=== PATIENT | male | born 1960 | race Caucasian/White ===

== ENCOUNTER 2019-06-15 03:23 | Emergency (ER) | payer OTHER ==
[2019-06-15 04:04] LABS: ABSOLUTE BASOPHILS # (AUTO) 0.1 10^3/uL (0.0-0.2); ABSOLUTE EOSINOPHILS # (AUTO) 0.3 10^3/uL (0.0-0.6); ABSOLUTE LYMPHOCYTES (AUTO) 3.4 10^3/uL (0.5-4.7); ABSOLUTE MONOCYTES (AUTO) 0.8 10^3/uL (0.1-1.4); ABSOLUTE NEUT (AUTO) 5.4 10^3/uL (1.7-8.2); BASOPHILS % (AUTO) 0.8 % (0-2); EOSINOPHILS % (AUTO) 3.2 % (0-6); HEMATOCRIT 46.1 % (37.9-51.0); HEMOGLOBIN 16.1 g/dL (13.5-17.0); LYMPHOCYTES % (AUTO) 33.8 % (13-45); MEAN CORPUSCULAR HEMOGLOBIN 29.9 pg (27.0-33.4); MEAN CORPUSCULAR HGB CONC 34.9 g/dL (32.0-36.0); MEAN CORPUSCULAR VOLUME 86 fl (80-97); MONOCYTES % (AUTO) 7.9 % (3-13); PLATELET COUNT 167 10^3/uL (150-450); RED BLOOD COUNT 5.39 10^6/uL (4.35-5.55); RED CELL DISTRIBUTION WIDTH 13.2 % (11.5-14.0); SEGMENTED NEUTROPHILS % (AUTO) 54.3 % (42-78); TOTAL CELLS COUNTED % (AUTO) 100 %
[2019-06-15 04:06] VITALS: BP 133/88
[2019-06-15 04:31] LABS: ALBUMIN 4.2 g/dL (3.5-5.0); ALKALINE PHOSPHATASE 69 U/L (38-126); ANION GAP 9 (5-19); ASPARTATE AMINO TRANSFERASE 45 U/L (17-59); BILIRUBIN,TOTAL 0.9 mg/dL (0.2-1.3); BLOOD UREA NITROGEN 27 mg/dL (7-20); CALCIUM 8.9 mg/dL (8.4-10.2); CARBON DIOXIDE 28 mmol/L (22-30); CHLORIDE 102 mmol/L (98-107); GLUCOSE 154 mg/dL (75-110); POTASSIUM 3.9 mmol/L (3.6-5.0); TOTAL PROTEIN 7.1 g/dL (6.3-8.2)
--- NOTE | 2019-06-15 05:20 | RADIOLOGY REPORT (SQ) ---
CLINICAL HISTORY: chest pain COMPARISON: None. TECHNIQUE: XR CHEST 1 VIEW 06/15/2019 3:57 AM [facility] FINDINGS: Cardiac silhouette is normal in size. Lungs are clear without consolidation, atelectasis, mass or edema. There is no pleural effusion. There is no pneumothorax. There are no acute osseous findings. IMPRESSION: Clear lungs.
--- NOTE | 2019-06-15 05:28 | ER Document Report ---
ED General - General Chief Complaint: Arrhythmia Stated Complaint: ARRHYTHMIA Time Seen by Provider: 06/15/19 05:09 TRAVEL OUTSIDE OF THE [place] IN LAST 30 DAYS: No - HPI Notes: Patient is a 58-year-old male with a history of intermittent atrial fibrillation who presents to the emergency department for atrial fibrillation. He states he woke up this morning at about 3 AM to go to the bathroom. He walked over and found his heart rate to be 160. He denies any real chest pain, states he feels just "an uncomfortable sensation" that he describes as palpitations in his chest. He states he feels mildly short of breath with it. He denies any nausea, diaphoresis, near syncope. He has been on Cartia 120 mg as well as Eliquis for several months now. He was referred on to electrophysiology prior to moving to the area, but did not make it to the appointment before he moved here. 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 - Related Data Allergies/Adverse Reactions: No Known Allergies Allergy (Unverified 06/15/19 04:03) Home Medications: 81mg ASA. Milk Thistle. Fish Oil. Melatonin. Eliquis. Crestor. Cardizem 120mg PO. Vitamins Past Medical History - General Information source: Patient - Social History Smoking Status: Never Smoker Family History: Reviewed & Not Pertinent Patient has suicidal ideation: No Patient has homicidal ideation: No - Past Medical History Cardiac Medical History: Reports: Hx Atrial Fibrillation, Hx Coronary Artery Disease, Hx Heart Attack, Hx Hypercholesterolemia, Hx Hypertension Pulmonary Medical History: Denies: Hx COPD Endocrine Medical History: Reports: Hx Diabetes Mellitus Type 2 - Off of med ication, was told he no longer needed it. Denies: Hx Diabetes Mellitus Type 1 Past Surgical History: Reports: Hx Cardiac Catheterization - 1 stent Review of Systems - Review of Systems Cardiovascular: See HPI -: Yes All other systems reviewed and negative Physical Exam - Vital signs Vitals: Resp 16 06/15/19 03:39 - Notes Notes: This is a 58-year-old male who appears his stated age in no acute distress. Vital signs reviewed, please refer to chart. Head is normocephalic, atraumatic. Pupils equal round, reactive to light. Neck is supple without meningismus. Heart is irregularly irregular with normal S1, S2. Lungs are clear to auscultation bilaterally. Abdomen is soft, nontender, normoactive bowel sounds throughout. Extremities without cyanosis, clubbing. Posterior calves are nontender. Peripheral pulses are equal. Skin is warm and dry. Patient is awake, alert, neurological exam is nonfocal. Course - Re-evaluation Re-evalutation: 06/15/19 05:27 Patient presents emergency department for evaluation. He is a 58-year-old male with a history of intermittent atrial fibrillation, already anticoagulated who presents to the ED. His heart rate is between 90 and 110. His laboratory investigations are unremarkable. He is already appropriately anticoagulated. His chest x-ray fails to show any pulmonary edema. At this point, patient asks me if he can have something "to get him out of atrial fibrillation." I explained to him that I did not think that was possible. I did plan to consult cardiology in regards to follow-up, patient is stable at this time, we will continue to monitor. 06/15/19 06:[address] Oreilly. Patient's stable, his laboratory investigations are unremarkable. He agreed that outpatient rate control was appropriate, agreed with the addition of Toprol-XL. He is given his first dose of 25 mg of Toprol here. I will send him home with a prescription for same. He is to follow-up with Dr. Oreilly, return to the ED with worsening or new concerning symptoms of any sort. - Vital Signs Vital signs: Temp Pulse Resp BP Pulse Ox 15 133/88 H 97 06/15/19 04:01 06/15/19 04:01 06/15/19 04:01 - Laboratory Result Diagrams: 06/15/19 03:53 06/15/19 03:53 Laboratory results interpreted by me: 06/15/19 03:53 BUN 27 H Glucose 154 H ALT 64 H - Diagnostic Test Radiology reviewed: Reports reviewed Radiology results interpreted by me: 06/15/19 05:27 Chest X-Ray 06/15/19 03:57 IMPRESSION: Clear lungs. - EKG Interpretation by Me Additional EKG results interpreted by me: 06/15/19 05:28 Atrial fibrillation with a rate of 79-102. Normal axis and intervals. Nonspecific ST changes, but no acute changes concerning for ischemia or infarction. No old studies available for comparison. Discharge - Discharge Clinical Impression: Paroxysmal atrial fibrillation Condition: Stable Disposition: HOME, SELF-CARE Instructions: Atrial Fibrillation ([facility]) Additional Instructions: Continue your regular medications as prescribed, add Toprol-XL once daily. Follow-up with Dr. Oreilly, call his office today for an appointment. Return to the emergency department with worsening or new concerning symptoms of any sort. Referrals: TARIQ OREILLY MD [ACTIVE STAFF] - Follow up as needed
[2019-06-15] MEDS ORDERED: METOPROLOL SUCCINATE 25 MG TAB.SR.24H PO ONE (06:02)
--- NOTE | 2019-06-15 06:50 | EKG REPORT ---
SEVERITY:- ABNORMAL ECG - ATRIAL FIBRILLATION, V-RATE 79-102 BORDERLINE T ABNORMALITIES, LATERAL LEADS EARLY PRECORDIAL TRANSITION, CONSIDER O[place] : Confirmed by: Pablo Gomez MD 15-Jun-2019 06:50:23
== END 2019-06-15 06:40 | disposition home or self-care (01) ==
LOC: ER 03:23
DX: I48.0 Paroxysmal atrial fibrillation (principal); E78.00 Pure hypercholesterolemia, unspecified; I10 Essential (primary) hypertension; I25.10 Atherosclerotic heart disease of native coronary artery without angina pectoris; E11.9 Type 2 diabetes mellitus without complications; Z79.01 Long term (current) use of anticoagulants; Z79.82 Long term (current) use of aspirin; Z79.899 Other long term (current) drug therapy; Z95.5 Presence of coronary angioplasty implant and graft
CPT/HCPCS: 36415; 71045; 80053; 84484; 85025; 93005; 93010; 99285